=== PATIENT | male | born 1970 | race African-American/Black ===

== ENCOUNTER 2017-01-09 19:56 | Emergency (ER) | payer SELFPAY ==
[2017-01-09] MEDS ORDERED: Ketorolac 30 MG/ML SDV IVPUSH ONE (20:46)
[2017-01-09] MEDS ORDERED: HYDROmorphone 0.5 MG/0.5 ML Syringe IVPUSH ONE (20:46)
[2017-01-09] MEDS ORDERED: Iopamidol 612 MG/ML 150 ML Bottle IVPUSH ONE (21:01)
[2017-01-09] MEDS ORDERED: Diatrizoate Meglumine/Diatrizoate Sodium 37% 120 ML Bottle ONE (21:01)
[2017-01-09] MEDS: Sodium Chloride 0.9% 10 ML Syringe FLUSH PRN ×2 (21:16→21:48)
--- NOTE | 2017-01-09 21:18 | EDM.PDOC ---
<Britni Donis - Last Filed: 01/09/17 23:35> ED HPI GENERAL MEDICAL PROBLEM - General Chief Complaint: Skin Complaint Stated Complaint: Rectal lump Time Seen by Provider: 01/09/17 20:45 Source of Information: Reports: Patient, RN Notes Reviewed History Limitations: Reports: No Limitations - History of Present Illness INITIAL COMMENTS - FREE TEXT/NARRATIVE: 46 year old male presents to the ED with 2-3 day history of rectal discomfort and lump. He feels the area has grown in size since onset. The area is to the outside of his rectum. It is very painful and tender to touch. He has no history of hemorrhoids that he's aware of. No previous abscesses to the rectal area. He reports a history of MRSA on his leg about 10 years ago. No additional history of abscesses in the past. He denies fever or chills. Rectal Pain Score (Numeric/FACES): 9 - Related Data Allergies Allergy/AdvReac Type Severity Reaction Status Date / Time No Known Allergies Allergy Verified 03/09/16 16:52 Home Meds: Home Meds Amoxicillin/Potassium Clav [Augmentin 875-125 Tablet] 1 tab PO Q12H #20 tablet 01/10/17 [Rx] Hydrocodone/Acetaminophen [Timberon 5-325 Tablet] 1 - 2 tab PO Q6H PRN #12 tablet 01/10/17 [Rx] Past Medical History - Past Health History Medical/Surgical History: Denies Medical/Surgical History - Infectious Disease History Infectious Disease History: Reports: MRSA - Past Surgical History Neurological Surgical History: Reports: C-Spine Musculoskeletal Surgical History: Reports: Other (See Below) Social & Family History - Tobacco Use Smoking Status *Q: Current Every Day Smoker Years of Tobacco use: 13 Packs/Tins Daily: 0.7 - Caffeine Use Caffeine Use: Reports: Energy Drinks, Tea - Recreational Drug Use Recreational Drug Use: No - Living Situation & Occupation Living situation: Reports: , with Family Occupation: Employed ED ROS GENERAL - Review of Systems Review Of Systems: See Below Constitutional: Reports: No Symptoms. Denies: Fever, Chills : Reports: Other (rectal pain) Skin: Reports: Erythema, Lumps ED EXAM, SKIN/RASH Exam: See Below Exam Limited By: No Limitations General Appearance: Alert, WD/WN, No Apparent Distress Respiratory/Chest: No Respiratory Distress Cardiovascular: Regular Rate, Rhythm Rectal (Males) Exam: Other (there is an approximate quarter sized lump to the right of the rectum. The area is bright red and tender to touch. No bleeding or drainage. Difficult to determine if this is a perirectal abscess or rectal fissure. ) Skin: Warm, Dry, Normal Color Course - Vital Signs Last Recorded V/S: Last Vital Signs Temp 36.7 C 01/09/17 20:17 Pulse 84 01/09/17 20:17 Resp 20 01/09/17 20:17 BP 135/81 01/09/17 20:17 Pulse Ox 94 L 01/09/17 20:17 - Orders/Labs/Meds Orders: Active Orders 24 hr Category Date Time Status Pelvis w Cont [CT] Stat Exams 01/09/17 20:45 Taken Sodium Chloride 0.9% [Saline Flush] Med 01/09/17 20:45 Active 10 ml FLUSH ASDIRECTED PRN Peripheral IV Insertion Adult [OM.PC] Stat Oth 01/09/17 20:45 Ordered Medication Orders Sodium Chloride (Saline Flush) 10 ml FLUSH ASDIRECTED PRN PRN Reason: Keep Vein Open Last Admin: 01/09/17 21:48 Dose: 10 ml Admin: 01/09/17 21:16 Dose: 10 ml Labs: Laboratory Tests 01/09/17 01/09/17 Range/Units 21:15 21:15 WBC 8.44 (4.23-9.07) K/mm3 RBC 4.39 L (4.63-6.08) M/mm3 Hgb 14.3 (13.7-17.5) gm/L Hct 42.7 (40.1-51.0) % MCV 97.3 H (79.0-92.2) fl MCH 32.6 H (25.7-32.2) pg MCHC 33.5 (32.2-35.5) g/dl RDW Std Deviation 43.9 (35.1-43.9) fL Plt Count 217 (163-337) K/mm3 MPV 9.4 (9.4-12.3) fl Neut % (Auto) 53.2 (34.0-67.9) % Lymph % (Auto) 32.2 (21.8-53.1) % Weld % (Auto) 10.9 (5.3-12.2) % Eos % (Auto) 3.0 (0.8-7.0) Baso % (Auto) 0.6 (0.1-1.2) % Neut # (Auto) 4.49 (1.78-5.38) K/mm3 Lymph # (Auto) 2.72 (1.32-3.57) K/mm3 Weld # (Auto) 0.92 H (0.30-0.82) K/mm3 Eos # (Auto) 0.25 (0.04-0.54) K/mm3 Baso # (Auto) 0.05 (0.01-0.08) K/mm3 Sodium 140 (136-145) mEq/L Potassium 4.1 (3.5-5.1) mEq/L Chloride 104 (98-107) mEq/L Carbon Dioxide 28 (21-32) mEq/L Anion Gap 12.1 (5-15) BUN 10 (7-18) mg/dL Creatinine 1.2 (0.7-1.3) mg/dL Est Cr Clr Drug Dosing 93.43 mL/min Estimated GFR (MDRD) > 60 (>60) mL/min BUN/Creatinine Ratio 8.3 L (14-18) Glucose 120 H (74-106) mg/dL Calcium 8.5 (8.5-10.1) mg/dL Total Bilirubin 0.3 (0.2-1.0) mg/dL AST 22 (15-37) U/L ALT 31 (16-63) U/L Alkaline Phosphatase 63 (46-116) U/L C-Reactive Protein 4.0 H* (<1.0) mg/dL Total Protein 7.4 (6.4-8.2) g/dl Albumin 3.7 (3.4-5.0) g/dl Globulin 3.7 gm/dL Albumin/Globulin Ratio 1.0 (1-2) Meds: Medications Generic Name Dose Route Start Last Admin Trade Name Freq PRN Reason Stop Dose Admin Sodium Chloride 10 ml 01/09/17 20:45 01/09/17 21:48 Saline Flush FLUSH 10 ml ASDIRECTED PRN Administration Keep Vein Open Discontinued Medications Generic Name Dose Route Start Last Admin Trade Name Freq PRN Reason Stop Dose Admin Diatrizoate Meglum/Diatrizoate Sod 60 ml 01/09/17 21:01 01/09/17 21:48 Gastrografin 37% .XX 01/09/17 21:02 60 ml ONETIME ONE Administration Hydromorphone HCl 0.5 mg 01/09/17 20:46 01/09/17 21:16 Dilaudid IVPUSH 01/09/17 20:47 0.5 mg ONETIME ONE Administration Iopamidol 125 ml 01/09/17 21:01 01/09/17 21:48 Isovue-300 (61%) IVPUSH 01/09/17 21:02 125 ml ONETIME ONE Administration Ketorolac Tromethamine 30 mg 01/09/17 20:46 01/09/17 21:16 Toradol IVPUSH 01/09/17 20:47 30 mg ONETIME ONE Administration - Re-Assessments/Exams Free Text/Narrative Re-Assessment/Exam: CBC and CMP unremarkable. CRP is mildly elevated at 4. 2215 [facility] called to report that the CT imaging study was inadequate as it did not visualize the entire perineum and perianal regions for definitive evaluation. They recommend that we repeat a limited study. They do not recommend repeat IV contrast. lift team technician was notified. Will obtain additional images. 01/09/17 23:35 This is the end of my shift. Awaiting radiologist report of additional CT images of the perineum. Dr. Alejandre will be taking over care of the patient at this time. Departure - Departure Disposition: Home, Self-Care 01 Clinical Impression: Perianal abscess - Discharge Information Prescriptions: Hydrocodone/Acetaminophen [Timberon 5-325 Tablet] 1 - 2 tab PO Q6H PRN #12 tablet PRN Reason: Pain (Severe 7-10) Referrals: PCP,None [Primary Care Provider] - Mary Kunz MD [Physician] - Forms: ED Department Discharge Additional Instructions: You were seen in the emergency room for right perianal pain. Workup in the ER included blood work and a CT scan of your pelvis. Your workup demonstrates that you have a right perianal abscess. You have been started on the antibiotic Augmentin. Take one tablet every 12 hours, as prescribed. Finish the entire prescription unless told otherwise by a doctor. You have been prescribed the pain medicine Timberon. Take 1-2 tablets up to every 6 hours, as needed for pain. If you take Timberon, do not drive or operate heavy machinery for 12 hours. Timberon may cause constipation, so consider taking a stool softener. Call the office of the surgeon Dr. Mary Kunz this morning, to make an appointment to be seen by her this afternoon. Other than your medications, DO NOT EAT OR DRINK ANYTHING after 6:00 AM. If any other problems, please do not hesitate to return to the ER. <Eddi Alejandre - Last Filed: 01/10/17 00:33> Course - Re-Assessments/Exams Free Text/Narrative Re-Assessment/Exam: 01/10/17 00:07 CT of the pelvis with IV and rectal contrast is read by [facility] as "There is a small area of induration with surrounding stranding in the subcutaneous right perianal region measuring 1.7 x 1.5 x 2.0 cm. Centrally this has an attenuation of approximately 15 Hounsfield units which is within range of complex fluid and finding is suspicious for small abscess. No other significant abnormality." 01/10/17 00:[address] Mary Kunz at 00:19. She is recommending that we start the patient on Augmentin. I will prescribe some Timberon. The patient is to call her office this morning to make an appointment to be seen by her this afternoon, at which time she will make arrangements for drainage. Departure - Departure Time of Disposition: 00:27 Condition: Fair
[2017-01-10] MEDS ORDERED: Amoxicillin/Clavulanate K 875-125 MG Tab PO ONE (00:23)
[2017-01-10 00:37] VITALS: BP 144/71
--- NOTE | 2017-01-10 10:20 | CT ---
CT pelvis Technique: Multiple axial sections through the pelvis were obtained. Imaging was not continued through the perineum or rectum. Rectal and IV contrast was utilized. Findings: No perirectal abscess or fistula is appreciated on this exam. No intrapelvic abnormality is appreciated. Degenerative change is noted within the apophyseal joints of L4-L5 and L5-S1. Appendix is seen which appears normal. No inflammatory change or free fluid is seen within the abdomen or pelvis. Impression: 1. Complete rectum and lower perineum spaces were not included. 2. Visualized rectum and perirectal spaces show no discrete fistula or abscess. If clinically needed, MRI could be considered as it is much more sensitive for abscess/fistula evaluation. 3. Mild degenerative change within the apophyseal joints at L4-L5 and L5-S1. Diagnostic code #2 I agree with preliminary report issued by [facility] ([facility] preliminary report dictated on 01/09/17, 11:18 PM Central Time) AUDREY
== END 2017-01-10 00:45 | disposition home or self-care (01) ==
LOC: JD.ED 19:56
DX: K61.0 Anal abscess (principal); F17.210 Nicotine dependence, cigarettes, uncomplicated
CPT/HCPCS: 36415; 72193; 80053; 85025; 86140; 96374; 96375; 99284; A9270; J1170; J1885; J7050; Q9963; Q9967; 99283

== ENCOUNTER 2017-04-20 21:09 | Emergency (ER) | payer OTHER ==
[2017-04-20 21:21] VITALS: BP 123/87
[2017-04-20] MEDS ORDERED: Acetaminophen/oxyCODONE 325-5 MG Tab PO ONE (22:40)
--- NOTE | 2017-04-20 22:50 | EDM.PDOC ---
ED HPI GENERAL MEDICAL PROBLEM - General Chief Complaint: Upper Extremity Injury/Pain Stated Complaint: poss burn to hand Time Seen by Provider: 04/20/17 22:32 Source of Information: Reports: Patient History Limitations: Reports: No Limitations - History of Present Illness INITIAL COMMENTS - FREE TEXT/NARRATIVE: 46 year old male presents for evaluation and treatment of an injury to the left thumb. Injury occurred today while at work. 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 Apparently he fell but he is unable to tell me exactly how he fell. He is reporting pain, decreased ROM and swelling to the left thumb. No numbness or tinging to the left thumb. No treatments prior to arrival in the ER. Patient is exhausted from work and has difficulty staying awake for my history an exam. Onset: Today Location: Reports: Lower Extremity, Left (first finger) Left 1-Thumb Pain Score (Numeric/FACES): 9 - Related Data Allergies Allergy/AdvReac Type Severity Reaction Status Date / Time hydrocodone Allergy Mouth Sores Verified 04/20/17 21:21 Sulfa (Sulfonamide Allergy Swelling Verified 04/20/17 21:21 Antibiotics) Home Meds: Home Meds Acetaminophen/oxyCODONE [Percocet 325-5 MG] 1 tab PO Q6H #10 tablet 04/20/17 [Rx ] Past Medical History - Past Health History Medical/Surgical History: Denies Medical/Surgical History - Infectious Disease History Infectious Disease History: Reports: MRSA - Past Surgical History Neurological Surgical History: Reports: C-Spine Musculoskeletal Surgical History: Reports: Arthroscopic Knee, ORIF Social & Family History - Tobacco Use Smoking Status *Q: Current Every Day Smoker Years of Tobacco use: 20 Packs/Tins Daily: 1 - Caffeine Use Caffeine Use: Reports: Energy Drinks, Tea - Recreational Drug Use Recreational Drug Use: No - Living Situation & Occupation Living situation: Reports: , with Family Occupation: Employed Review of Systems - Review of Systems Review Of Systems: See Below Musculoskeletal: Reports: Hand Pain (left thumb), Joint Swelling (left thumb) Skin: Denies: Wound Neurological: Denies: Numbness, Tingling ED EXAM, GENERAL - Physical Exam Exam: See Below Exam Limited By: No Limitations General Appearance: WD/WN, No Apparent Distress, Lethargic Cardiovascular: Normal Peripheral Pulses, Regular Rate, Rhythm Peripheral Pulses: 2+: Radial (L) Extremities: Limited Range of Motion (unable to make a fist, flex or extend th tleft thumb), Other (swellign to the left thumb, tenderness to palpation along the left thumb ulnar aspect) Neurological: Normal Gait. No: Confused Skin Exam: Warm, Dry, Normal Color. No: Erythema ED TRAUMA EXTREMITY PROCEDURES - Splinting Left Upper Extremity Splint Site: left thumb and hand Pre-Procedure NV Status: Normal Post-Procedure NV Status: Normal Splint Material: Other (orthoglass) Splint Design: Thumb Spica Applied & Form Fitted By: Provider, Nurse Provider Post-Splint Application NV Check: NV Status Normal, Good Position Complications: No Course - Vital Signs Last Recorded V/S: Last Vital Signs Temp 36.2 C 04/20/17 21: Pulse 78 04/20/17 21:17 Resp 16 04/20/17 21:17 BP 123/87 04/20/17 21:17 Pulse Ox 92 L 04/20/17 21:17 - Orders/Labs/Meds Meds: Medications Discontinued Medications Generic Name Dose Route Start Last Admin Trade Name Edmund PRN Reason Stop Dose Admin Oxycodone/Acetaminophen 1 tab 04/20/17 22:40 04/20/17 22:48 Percocet 325-5 Mg PO 04/20/17 22:41 1 tab ONETIME ONE Administration - Radiology Interpretation Free Text/Narrative:: xray of the left thumb reviewed by myself and Dr. Alejandre shows no acute fractures or dislocations. - Re-Assessments/Exams Free Text/Narrative Re-Assessment/Exam: 04/20/17 23:07 I reviewed the xray results with the patient. Unsure if he has something like a gamekeepers thumb. He is a poor historian and unable to preform many ROM exercieses. I will put him in a thumb spika splint and discharge him home. Departure - Departure Time of Disposition: 23:08 Disposition: Home, Self-Care 01 Condition: Fair Clinical Impression: Gamekeeper's thumb of left hand - Discharge Information Prescriptions: Acetaminophen/oxyCODONE [Percocet 325-5 MG] 1 tab PO Q6H #10 tablet Referrals: Fadia Arguello PA-C [Primary Care Provider] - Riki Sawant MD [Physician] - Forms: ED Department Discharge Additional Instructions: Follow-up with orthopedics within [address] Sawant. Call [phone] to schedule with him. Ice the thumb 4-5 times a day for 20-30 minutes. you were given medication in the ER that can affect your ability to drive and operate machinery. Do not drive or operate machinery within 12 hours of taking percocet. OTC tylenol or motrin as needed for pain relief. For pain not relieved by tylenol or motrin, may take percocet 1-2 tabs PO every 4-6 hours as need for pain. Percocet can be habit forming, I recommend you take as few of these to control your pain. Do not take more than 4grams of tylenol from all sources in one dauy. Do not drive or operate machinery within 12 hours of taking percocoet. splint on at all times. Keep covered when exposed to water. Please return to the ER should your symptoms change or worsen.
--- NOTE | 2017-04-21 07:37 | CR ---
Left thumb: Three views of the left thumb were obtained. Comparison: No previous finger or hand exam. Joint spaces are preserved. No fracture, dislocation or other bony abnormality is appreciated. Impression: 1. No abnormality is identified on left thumb study. Diagnostic code #1
== END 2017-04-20 23:34 | disposition home or self-care (01) ==
LOC: JD.ED 21:09
DX: S63.418A Traumatic rupture of collateral ligament of other finger at metacarpophalangeal and interphalangeal joint, initial encounter (principal); F17.210 Nicotine dependence, cigarettes, uncomplicated; Z88.2 Allergy status to sulfonamides; Z88.5 Allergy status to narcotic agent; W19.XXXA Unspecified fall, initial encounter; Y99.0 Civilian activity done for income or pay
CPT/HCPCS: 29125; 73140; 99283; A9270

== ENCOUNTER 2017-06-14 15:19 | Emergency (ER) | payer OTHER ==
[2017-06-14 15:38] VITALS: BP 135/97
--- NOTE | 2017-06-14 16:41 | EDM.PDOC ---
ED HPI GENERAL MEDICAL PROBLEM - General Chief Complaint: Neck Problem Stated Complaint: PATIENT STATES SOMETHING IN HIS NECK POPPED Time Seen by Provider: 06/14/17 16:40 Source of Information: Reports: Patient History Limitations: Reports: No Limitations - History of Present Illness INITIAL COMMENTS - FREE TEXT/NARRATIVE: 46-year-old male of -Mal[place]ian ancestry presents to the ED stating that while walking in the mall this afternoon he developed a" popping sensation "in his neck and then acute pain down his left upper extremity. Patient has usually chronic radiculopathy in his right upper extremity. Therefore the left-sided radiculopathy is new. Patient already has known disc herniations in his neck and is awaiting surgical consultation and management with Dr. Rivera neurosurgeon at [facility] in [facility]. Had recent CT and MRI of his cervical spine. He has chronic problems with his neck. He had previous spinal fusion performed in the lower vertebra be believe C6-C7 C5-C6 level -9 years ago. Since that time he is in severe pain primarily in his left upper extremity left side of his neck and is afraid to move. He states he had to shuffle walk out of the mall to get into the vehicle. Onset: Today Onset Date: 06/14/17 Onset Time: 15:00 Duration: Minutes: Location: Reports: Neck Quality: Reports: Ache, Burning, Sharp, Stabbing, Other Severity: Severe (The radicular pain into his left upper extremity) Improves with: Reports: None Worsens with: Reports: Movement Context: Reports: Other (Was just walking in the mall today when he developed a popping sensation in his neck and then left-sided radiculopathy upper extremity. ). Denies: Activity, Exercise, Lifting, Sick Contact, Trauma Associated Symptoms: Reports: Loss of Appetite, Malaise. 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: Reports: Other (see below) (None.) Neck Pain Score (Numeric/FACES): 10 - Related Data Allergies Allergy/AdvReac Type Severity Reaction Status Date / Time hydrocodone Allergy Mouth Sores Verified 06/14/17 15:32 Sulfa (Sulfonamide Allergy Swelling Verified 06/14/17 15:32 Antibiotics) Home Meds: Home Meds Acetaminophen/oxyCODONE [Percocet 325-5 MG] 1 tab PO Q6H #10 tablet 04/20/17 [Rx ] Past Medical History - Past Health History Medical/Surgical History: Denies Medical/Surgical History - Infectious Disease History Infectious Disease History: Reports: MRSA - Past Surgical History Neurological Surgical History: Reports: C-Spine Other Neurological Surgeries/Procedures: fusion Musculoskeletal Surgical History: Reports: Arthroscopic Knee, ORIF Social & Family History - Tobacco Use Smoking Status *Q: Current Every Day Smoker Years of Tobacco use: 15 Packs/Tins Daily: 0.5 - Caffeine Use Caffeine Use: Reports: Tea - Recreational Drug Use Recreational Drug Use: No - Living Situation & Occupation Living situation: Reports: , with Family Occupation: Employed ED ROS GENERAL - Review of Systems Review Of Systems: See Below Constitutional: Reports: Fatigue (From not sleeping very well last several weeks.). Denies: Fever, Chills HEENT: Reports: No Symptoms Respiratory: Reports: No Symptoms Cardiovascular: Reports: No Symptoms Endocrine: Reports: No Symptoms GI/Abdominal: Reports: Constipation : Reports: No Symptoms Musculoskeletal: Reports: Neck Pain (Chronic cervical neck pain the last month. Previous cervical fusion C5-C6 C6-C7 9 years ago.) Skin: Reports: No Symptoms Neurological: Reports: No Symptoms, Other (Radiculopathy both upper extremities. ) Psychiatric: Reports: No Symptoms ED EXAM, UPPER BACK/NECK PAIN - Physical Exam Exam: See Below Exam Limited By: No Limitations General Appearance: Alert, Moderate Distress Eye Exam: Bilateral Eye: Normal Inspection Throat/Mouth Exam: Normal Inspection, Normal Lips, Normal Teeth, Normal Oropharynx Head Exam: Atraumatic, Normocephalic Neck Exam: Limited Range of Motion, Other (Patient is very apprehensive about any movement of his neck at this time. He tends to look straight ahead and not want to laterally rotate at all as it aggravates the pain in the left side of his neck. On palpation there is very minimal muscle spasm palpable left or right side.) Cardiovascular/Respiratory: Regular Rate, Rhythm, No M/R/G, Normal Peripheral Pulses, No JVD GI/Abdominal: Normal Bowel Sounds, Soft, Non-Tender, No Organomegaly Extremities: Other (He prefers to hold his left arm that 90 flexion at the elbow across his abdomen. 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 As Tested, Alert, Normal Mood/Affect (Anxious and apprehensive.), Oriented x 3 Psychiatric: Normal Affect, Normal Mood, Anxious Skin Exam: Normal Color, Warm/Dry Course - Vital Signs Last Recorded V/S: Last Vital Signs Temp 36.9 C 06/14/17 15:33 Pulse 89 06/14/17 15:33 Resp 12 06/14/17 15:33 BP 135/97 H 06/14/17 15:33 Pulse Ox 99 06/14/17 15:33 - Orders/Labs/Meds Orders: Active Orders 24 hr Category Date Time Status Sodium Chloride 0.9% [Normal Saline] 1,000 ml Med 06/14/17 17:00 Active IV ASDIRECTED Medication Orders Sodium Chloride (Normal Saline) 1,000 mls @ 125 mls/hr IV ASDIRECTED SHY Last Admin: 06/14/17 17:03 Dose: 125 mls/hr Meds: Medications Generic Name Dose Route Start Last Admin Trade Name Freq PRN Reason Stop Dose Admin Sodium Chloride 1,000 mls @ 125 mls/hr 06/14/17 17:00 06/14/17 17:03 Normal Saline IV 125 mls/hr ASDIRECTED SHY Administration Discontinued Medications Generic Name Dose Route Start Last Admin Trade Name Freq PRN Reason Stop Dose Admin Hydromorphone HCl 1 mg 06/14/17 16:49 06/14/17 17:03 Dilaudid IVPUSH 06/14/17 16:50 1 mg ONETIME ONE Administration Hydromorphone HCl 1 mg 06/14/17 18:11 06/14/17 18:19 Dilaudid IVPUSH 06/14/17 18:12 1 mg ONETIME ONE Administration Metoclopramide HCl 10 mg 06/14/17 16:49 06/14/17 17:03 Reglan IVPUSH 06/14/17 16:50 10 mg ONETIME ONE Administration - Radiology Interpretation Free Text/Narrative:: 46-year-old male presents to the ED after developing a sudden popping sensation in his neck while walking in the mall today. This created severe pain and radiculopathy into his left upper extremity which he has not expressed in the past. Patient has chronic cervical neck pain and has had recent MRI and CTs carried out which indicate a significant degenerative disc disease and bulge. Is scheduled to see Dr. Rivera neurosurgeon at [facility] for definitive surgical management but he has not received a surgical date at this time prior to today he been experiencing radiculopathy into his right upper extremity. Patient has had previous cervical spine fusion he believes at C5-C6 C6-C7 level 9 years ago. On up until about a month ago when pain suddenly started in his neck due to disc herniation. No recent trauma to the neck has occurred. Plan the present he is very apprehensive about about any movement of his neck. I will start an IV on him and given Dilaudid 1 mg IV with Reglan [address] of the cervical spine will be ordered once he can lie down flat. - Re-Assessments/Exams Free Text/Narrative Re-Assessment/Exam: 06/14/17: 18:00 CT of the cervical spine report is now available. It shows mild posterior disc space narrowing at C2-C3 level was no central canal stenosis or neural foraminal stenosis noted. At C3-C4 there is mild disc space narrowing but there is mild bilateral neural foraminal stenosis is seen as well no central canal stenosis is seen there is mild posterior diffuse disc bulge which appears to cause some central canal stenosis. At C4-C5 there is mild disc space narrowing note neural foramina are patent and no central canal stenosis is seen at C6-C7 there is intervertebral disc fixation device present artifact is noted from the hardware. The left neural foramen is patent the right neural foramina is mildly narrowed. Central canal is preserved C6-C7 shows mild disc space narrowing with no central canal stenosis or neural foraminal stenosis seen C7- T1 disc space is preserved no central canal stenosis or neural foraminal stenosis is seen. No fractures are identified. Therefore concern exists about possible central bulge of disc at C3-C4 level causing current symptoms. 06/14/17 18:11 I discussed the findings with the patient . He is likely going to require neurosurgical management. At present he is disabled. Not working and therefore financial barriers exist to getting fixed up. He currently is still having significant pain 7 out of 10 on I will repeat Dilaudid 1 mg IV. I'm going to look at his previous MRI to determine if the disc in question is similar to what we found on CT today. 06/14/17 18:15 Unfortunately appears his MRI was not done at this hospital as I cannot identify it in our archives. It probably was done at [facility] or [facility]. Patient states he is having some much pain at this time that he is going to travel to [facility]. We can try and fit him with a collar although I think this may be difficult as he has a "bull" neck. 06/14/17 19:15 Patient was fitted successfully with a Hopi type cervical collar and he felt this felt better. He plans on traveling to [facility] as mentioned above. He's not sure which hospital he is going to therefore I did not make a referral. Departure - Departure Time of Disposition: 18:25 Disposition: Home, Self-Care 01 Condition: Fair Clinical Impression: Degeneration of intervertebral disc of cervical spine without disc herniation, Radiculopathy affecting upper extremity - Discharge Information Instructions: Cervical Radiculopathy, [id number] Referrals: Fadia Arguello PA-C [Primary Care Provider] - Forms: ED Department Discharge Additional Instructions: Evaluation the emergency room today in regards to sudden onset of worsening pain in her neck with left-sided or upper extremity paresthesias which means numbness tingling and pain which we call radiculopathy. Prior to today only having pain in your right upper extremity. Popping sensation and worsening of pain suggests a disc as ruptured or herniated. Teeth exam of the neck was done in the ED and it suggests that the disc at the C3-C4 level is pushed backwards and touching the spinal cord. Unfortunately to further define for sure if the cord is being compressed significantly an MRI is required which is not available at this time in [place]. As we discussed to your plans are to travel to [facility] for definitive imaging studies and determination whether emergent neurosurgical decompression is required. You have received 2 doses of Dilaudid 1 mg strength IV while in the eye the ED for pain relief. You cannot operate a motor vehicle for the next 8 hours due to this medication. - My Orders Last 24 Hours: My Active Orders 06/14/17 17:00 Sodium Chloride 0.9% [Normal Saline] 1,000 ml IV ASDIRECTED - Assessment/Plan Last 24 Hours: My Active Orders 06/14/17 17:00 Sodium Chloride 0.9% [Normal Saline] 1,000 ml IV ASDIRECTED
[2017-06-14] MEDS ORDERED: HYDROmorphone 1 MG/ML Syringe IVPUSH ONE ×2 (16:49→18:11)
[2017-06-14] MEDS ORDERED: Metoclopramide 10 MG/2 ML SDV IVPUSH ONE (16:49)
[2017-06-14] MEDS ORDERED: Sodium Chloride 0.9% 1,000 ML IV SCH (17:00)
--- NOTE | 2017-06-14 18:12 | CT ---
CT cervical spine Technique: Multiple axial sections were obtained from above C1 inferiorly to the bottom of T2. Reconstructed sagittal and coronal images were reviewed. Comparison: Previous CT cervical spine exam of 06/05/13. Findings: Anterior plate and screws are noted at C5-C6. These are stable from prior exam. Mastoid sinuses and middle ear cavities are clear. Posterior skull base is intact. Slight degenerative change is noted between the dens and anterior arch of C1. C2-C3: Mild posterior disc space narrowing is seen. No central canal stenosis or neural foraminal stenosis is seen. C3-C4: Mild disc space narrowing is seen. Mild bilateral neural foraminal stenosis is seen. No central canal stenosis is seen. Mild posterior diffuse bulge is seen which appears to cause some central canal stenosis. This can be better defined by MRI. C4-C5: Mild disc space narrowing is seen. Neural foramina are patent. No central canal stenosis is seen. C6-C7: Intervertebral disc fixation device is seen. Artifact is noted from the hardware. Left neural foramen is patent. Right neural foramina is minimally narrowed. Central canal is preserved. C6-C7: Mild disc space narrowing is seen. No central canal stenosis or neural foraminal stenosis is seen. C7-T1: Disc space is preserved. No central canal stenosis or neural foraminal stenosis is seen. No fracture is seen. No abnormal subluxation is seen. Mild degenerative apophyseal change is scattered within the cervical spine. Impression: 1. Mild degenerative change as noted above with areas of neural foraminal stenosis. Possible diffuse disc bulge at C3-C4 possibly causing some central canal stenosis. This can be better defined by MRI if clinically needed. 2. Previous surgery which is stable from prior exam. 3. Nothing acute is appreciated. Diagnostic code #3
== END 2017-06-14 19:00 | disposition home or self-care (01) ==
LOC: JD.ED 15:19
DX: M50.30 Other cervical disc degeneration, unspecified cervical region (principal); F17.210 Nicotine dependence, cigarettes, uncomplicated; Z88.2 Allergy status to sulfonamides; Z88.5 Allergy status to narcotic agent
CPT/HCPCS: 72125; 96361; 96374; 96375; 96376; 99284; J1170; J2765; J7040

== ENCOUNTER 2017-06-21 12:39 | Emergency (ER) | payer OTHER ==
[2017-06-21] MEDS ORDERED: Sodium Chloride 0.9% 10 ML Syringe FLUSH PRN (13:07)
[2017-06-21 13:09] VITALS: BP 141/90
[2017-06-21] MEDS ORDERED: Sodium Chloride 0.9% 1,000 ML IV SCH (13:15)
[2017-06-21] MEDS ORDERED: Iopamidol 612 MG/ML 100 ML Bottle IVPUSH ONE (13:19)
[2017-06-21] MEDS ORDERED: Sodium Chloride 0.9% 10 ML Syringe FLUSH ONE (13:19)
[2017-06-21] MEDS ORDERED: Ondansetron 4 MG/2 ML SDV IVPUSH ONE (13:20)
[2017-06-21] MEDS ORDERED: HYDROmorphone 0.5 MG/0.5 ML Syringe IVPUSH ONE (13:21)
--- NOTE | 2017-06-21 14:16 | CT ---
CT neck Technique: Multiple axial sections through the neck were obtained. Intravenous contrast was utilized. Findings: Large soft tissue mass identified within the lower left neck having a slightly lobulated appearance with maximum length measurement at 6.2 cm. Soft tissue fullness is noted to the left paralaryngeal soft tissues and prevertebral soft tissues which connects to the superficial abnormality. There is also some infiltration being seen of this abnormality anterior to the left perivascular space. Parotid salivary glands and submandibular salivary glands appear within normal limits. I do not see any discrete adenopathy. Bone window settings were reviewed which shows previous cervical spine surgery. Impression: 1. Large soft tissue mass as described above superficially within the left lower neck with extension into the prevertebral and paralaryngeal and pre-vascular space on the left side. This correlates to hematoma by clinical history. Diagnostic code #5
[2017-06-21] MEDS ORDERED: Ondansetron 4 MG/2 ML SDV ONE (14:20)
[2017-06-21] MEDS ORDERED: HYDROmorphone 0.5 MG/0.5 ML Syringe ONE (14:20)
[2017-06-21] MEDS ORDERED: Sodium Chloride 0.9% 1,000 ML ONE (14:20)
--- NOTE | 2017-06-21 16:38 | EDM.PDOC ---
ED HPI GENERAL MEDICAL PROBLEM - General Chief Complaint: ENT Problem Stated Complaint: POST SURGICAL NECK SWELLING Time Seen by Provider: 06/21/17 13:05 Source of Information: Reports: Patient History Limitations: Reports: No Limitations - History of Present Illness INITIAL COMMENTS - FREE TEXT/NARRATIVE: Patient is a 46-year-old male who presents ED complaining of a extending hematoma to the left anterior aspect of the neck after undergoing cervical fusion of 5 and 6 this past . Patient states right after surgery had swelling to his neck that has dissipated on the right side but is only producing getting worse on the left. States as a recent the swelling is causing difficulty with swallowing. Denies any difficulty with breathing. Hematomas nonpulsating. There is no bleeding from surgical incision site. He's been afebrile with only mild nausea present. No vomiting. Has taken Percocet tabs for pain with only minimal relief. Neck Pain Score (Numeric/FACES): 9 - Related Data Allergies Allergy/AdvReac Type Severity Reaction Status Date / Time hydrocodone Allergy Mouth Sores Verified 06/14/17 15:32 Sulfa (Sulfonamide Allergy Swelling Verified 06/14/17 15:32 Antibiotics) Home Meds: Home Meds Acetaminophen/oxyCODONE [Percocet 325-5 MG] 1 tab PO Q6H #10 tablet 04/20/17 [Rx ] Past Medical History - Past Health History Medical/Surgical History: Denies Medical/Surgical History Musculoskeletal History: Reports: Other (See Below) Other Musculoskeletal History: Chronic neck pain - Infectious Disease History Infectious Disease History: Reports: MRSA - Past Surgical History Neurological Surgical History: Reports: C-Spine Other Neurological Surgeries/Procedures: fusion Musculoskeletal Surgical History: Reports: Arthroscopic Knee, Other (See Below) Other Musculoskeletal Surgeries/Procedures:: "spinal spacing and fusion of neck " Social & Family History - Family History Family Medical History: Noncontributory - Tobacco Use Smoking Status *Q: Current Every Day Smoker Years of Tobacco use: 10 Packs/Tins Daily: 0.5 - Caffeine Use Caffeine Use: Reports: Tea - Recreational Drug Use Recreational Drug Use: No - Living Situation & Occupation Living situation: Reports: , with Family Occupation: Employed ED ROS GENERAL - Review of Systems Review Of Systems: See Below Constitutional: Reports: No Symptoms HEENT: Reports: Other (Difficulty with swallowing) Respiratory: Reports: No Symptoms Cardiovascular: Reports: No Symptoms GI/Abdominal: Reports: Nausea (Occassionally). Denies: Vomiting Musculoskeletal: Reports: Neck Pain (S/p fusion surgery 06/16/2017, hematoma to the left anterior neck. ) ED EXAM, UPPER BACK/NECK PAIN - Physical Exam Exam: See Below Exam Limited By: No Limitations General Appearance: Alert, WD/WN, No Apparent Distress Ears Exam: Hearing Grossly Normal Nose Exam: Normal Inspection Throat/Mouth Exam: Normal Gums, Normal Oropharynx, No Airway Compromise, Other ( Voice is hoarse and soft. ). No: Uvular Deviation Head Exam: Atraumatic, Normocephalic Neck Exam: Stiff Neck, Tenderness (Left anterior neck with palpation of hematoma and surrounding tissue. Large non pulsating hematomato the left anterior neck just left of the trachea. Surgical incision intact. No bleeding, redness, increased warmth, or any additional complaints. 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 DIRECTED Care 06/21/17 13:07 Active Peripheral IV Care [RC] . DIRECTED Care 06/21/17 13:08 Active NPO [Nothing Per Oral Diet] [DIET] Diet 06/21/17 Lunch Active Soft Tissue Neck w Cont [CT] Stat Exams 06/21/17 13:08 Ordered CBC WITH AUTO DIFF [HEME] Stat Lab 06/21/17 13:07 Ordered COMPREHENSIVE METABOLIC PN,CMP [CHEM] Stat Lab 06/21/17 13:08 Ordered INR,PT,PROTHROMBIN TIME [COAG] Stat Lab 06/21/17 13:07 Ordered PTT,PARTIAL THROMBOPLSTIN TIME [COAG] Stat Lab 06/21/17 13:07 Ordered TYPE AND SCREEN [BBK] Stat Lab 06/21/17 13:12 Ordered HYDROmorphone [Dilaudid] Med 06/21/17 13:21 Once 0.5 mg IVPUSH ONETIME ONE Iopamidol [Isovue-300 (61%)] Med 06/21/17 13:19 Once 80 ml IVPUSH ONETIME ONE Ondansetron [Zofran] Med 06/21/17 13:20 Once 4 mg IVPUSH ONETIME ONE Sodium Chloride 0.9% @ 125 MLS/HR (1000ml) Med 06/21/17 13:15 Ordered Sodium Chloride 0.9% [Normal Saline] 1,000 ml IV ASDIRECTED Sodium Chloride 0.9% [Saline Flush] Med 06/21/17 13:07 Ordered 10 ml FLUSH ASDIRECTED PRN Sodium Chloride 0.9% [Saline Flush] Med 06/21/17 13:19 Once 10 ml FLUSH ONETIME ONE Peripheral IV Insertion Adult [OM.PC] Routine Oth 06/21/17 13:07 Ordered - Re-Assessments/Exams Free Text/Narrative Re-Assessment/Exam: IV established with normal saline 125 mL per hour, Zofran 4 mg IVP, and Dilaudid 0.5 mg IVP. Initial labs and studies include CBC, chem 14, PTT/INR, PTT, type and screen, and also CT of the neck with IV contrast. Patient is nothing by mouth at this point. 06/21/17 14:13 CT neck impression: Large soft tissue mass as described above superficially within the left lower neck with extension into the prevertebral and paralaryngeal and prevascular space on the left side. This correlates to hematoma by clinical history. 1414 Spoke with [facility]. Faxed CT neck report to [facility] to have teacher vocational training Neurosurgeon to review. They will call back with plan. Fax did not go through. Clinical Data Associate has been in contact with [facility] and refaxed CT report. Lab orders and results are not crossing over due to [employer] operating issues. This is delaying care planning and disposition. 06/21/17 15:35 [facility] has called back stating they did not receive any faxes. Clinical Data Associate has faxed document four times with no success. Spoke with Radha PERDUE with Neurosurgery. Will have Dr. Conti review CT imaging and call back. 06/21/17 15:52 Radha MATH TUTOR with Neurosurgery called back. Dr. Conti reviewed CT of the neck. Not to concerned at this point. Requested patient return to their clinic tomorrow at 910 Central time and start patient on medro dose pack. This has been called into patients Pharmacy. 06/21/17 16:001 Lab results finally present: White blood cell count 7.90, hemoglobin 15, platelet count 249, coag studies within normal limits. Departure - Departure Time of Disposition: 16:01 Disposition: Home, Self-Care 01 Condition: Good Clinical Impression: S/P cervical discectomy Hematoma of neck Qualifiers: Encounter type: initial encounter Qualified Code(s): S10.93XA - Contusion of unspecified part of neck, initial encounter - Discharge Information Referrals: Fred Conti MD [Consulting Physician] - Forms: ED Department Discharge Additional Instructions: As discussed will have you follow-up with Dr. Conti in his clinic tomorrow at 910 a.m. central time zone for reevaluation. Continue taking all home medications as prescribed. Do not take ASA. Return to the E.D. if you develop any new or worsening symptoms. - My Orders Last 24 Hours: My Active Orders 06/21/17 13:07 Cardiac Monitoring [RC] . DIRECTED CBC WITH AUTO DIFF [HEME] Stat INR,PT,PROTHROMBIN TIME [COAG] Stat PTT,PARTIAL THROMBOPLSTIN TIME [COAG] Stat Sodium Chloride 0.9% [Saline Flush] 10 ml FLUSH ASDIRECTED PRN Peripheral IV Insertion Adult [OM.PC] Routine 06/21/17 13:08 Peripheral IV Care [RC] . DIRECTED Soft Tissue Neck w Cont [CT] Stat COMPREHENSIVE METABOLIC PN,CMP [CHEM] Stat 06/21/17 13:12 TYPE AND SCREEN [BBK] Stat 06/21/17 13:15 Sodium Chloride 0.9% @ 125 MLS/HR (1000ml) Sodium Chloride 0.9% [Normal Saline] 1,000 ml IV ASDIRECTED 06/21/17 13:19 Iopamidol [Isovue-300 (61%)] 80 ml IVPUSH ONETIME ONE Sodium Chloride 0.9% [Saline Flush] 10 ml FLUSH ONETIME ONE 06/21/17 13:20 Ondansetron [Zofran] 4 mg IVPUSH ONETIME ONE 06/21/17 13:21 HYDROmorphone [Dilaudid] 0.5 mg IVPUSH ONETIME ONE 06/21/17 Lunch NPO [Nothing Per Oral Diet] [DIET] - Assessment/Plan Last 24 Hours: My Active Orders 06/21/17 13:07 Cardiac Monitoring [RC] . DIRECTED CBC WITH AUTO DIFF [HEME] Stat INR,PT,PROTHROMBIN TIME [COAG] Stat PTT,PARTIAL THROMBOPLSTIN TIME [COAG] Stat Sodium Chloride 0.9% [Saline Flush] 10 ml FLUSH ASDIRECTED PRN Peripheral IV Insertion Adult [OM.PC] Routine 06/21/17 13:08 Peripheral IV Care [RC] . DIRECTED Soft Tissue Neck w Cont [CT] Stat COMPREHENSIVE METABOLIC PN,CMP [CHEM] Stat 06/21/17 13:12 TYPE AND SCREEN [BBK] Stat 06/21/17 13:15 Sodium Chloride 0.9% @ 125 MLS/HR (1000ml) Sodium Chloride 0.9% [Normal Saline] 1,000 ml IV ASDIRECTED 06/21/17 13:19 Iopamidol [Isovue-300 (61%)] 80 ml IVPUSH ONETIME ONE Sodium Chloride 0.9% [Saline Flush] 10 ml FLUSH ONETIME ONE 06/21/17 13:20 Ondansetron [Zofran] 4 mg IVPUSH ONETIME ONE 06/21/17 13:21 HYDROmorphone [Dilaudid] 0.5 mg IVPUSH ONETIME ONE 06/21/17 Lunch NPO [Nothing Per Oral Diet] [DIET]
== END 2017-06-21 16:20 | disposition home or self-care (01) ==
LOC: JD.ED 12:39
DX: M96.840 Postprocedural hematoma of a musculoskeletal structure following a musculoskeletal system procedure (principal); F17.210 Nicotine dependence, cigarettes, uncomplicated; Z88.5 Allergy status to narcotic agent; Z88.2 Allergy status to sulfonamides; Z98.1 Arthrodesis status
CPT/HCPCS: 36415; 70491; 80053; 85025; 85610; 85730; 86850; 86900; 86901; 96361; 96374; 96375; 99284; J1170; J2405; J7040; Q9967; 99283

== ENCOUNTER 2017-06-24 06:12 | Emergency (ER) | payer SELFPAY ==
[2017-06-24 06:21] VITALS: BP 149/104
--- NOTE | 2017-06-24 06:48 | EDM.PDOC ---
ED HPI GENERAL MEDICAL PROBLEM - General Chief Complaint: Wound Recheck Stated Complaint: WOUND RECHECK Time Seen by Provider: 06/24/17 06:29 Source of Information: Reports: Patient, Old Records History Limitations: Reports: No Limitations - History of Present Illness INITIAL COMMENTS - FREE TEXT/NARRATIVE: The patient underwent a left anterior cervical discectomy and fusion on , 06/26/2017, per the Neurosurgeon Dr. Conti at [facility]. He developed a postoperative hematoma on the left side of his lower neck. He was seen in this ED for evaluation on 06/21/2017, where a CT scan was performed, confirming the hematoma. The images were forwarded to his Neurosurgeon, who reviewed them. The patient followed up with Dr. Conti this past Tuesday, . The patient states that the wound was not manipulated, however, he was started on a Medrol Dosepak. The patient states that he was woken this morning with warm fluid coming out of the wound. The fluid is thick and dark. There is no associated pain. - Related Data Allergies Allergy/AdvReac Type Severity Reaction Status Date / Time hydrocodone Allergy Mouth Sores Verified 06/24/17 06:21 Sulfa (Sulfonamide Allergy Swelling Verified 06/24/17 06:21 Antibiotics) Home Meds: Home Meds Acetaminophen/oxyCODONE [Percocet 325-5 MG] 1 tab PO Q6H #10 tablet 04/20/17 [Rx ] Cyclobenzaprine [Flexeril] 10 mg PO BID 06/24/17 [History] Past Medical History - Past Health History Medical/Surgical History: Denies Medical/Surgical History Musculoskeletal History: Reports: Other (See Below) Other Musculoskeletal History: Chronic neck pain - Infectious Disease History Infectious Disease History: Reports: MRSA - Past Surgical History Neurological Surgical History: Reports: C-Spine Other Neurological Surgeries/Procedures: fusion Musculoskeletal Surgical History: Reports: Arthroscopic Knee, Other (See Below) Other Musculoskeletal Surgeries/Procedures:: "spinal spacing and fusion of neck " Social & Family History - Family History Family Medical History: Noncontributory - Tobacco Use Smoking Status *Q: Current Every Day Smoker Years of Tobacco use: 15 Packs/Tins Daily: 0.5 - Caffeine Use Caffeine Use: Reports: Tea - Recreational Drug Use Recreational Drug Use: No - Living Situation & Occupation Living situation: Reports: , with Family Occupation: Employed ED ROS GENERAL - Review of Systems Review Of Systems: ROS reveals no pertinent complaints other than HPI. ED EXAM, GENERAL - Physical Exam Exam: See Below Exam Limited By: No Limitations General Appearance: Alert, WD/WN, No Apparent Distress Eye Exam: Bilateral Eye: Normal Inspection Ears: Normal External Exam, Hearing Grossly Normal Nose: Normal Inspection, No Blood Throat/Mouth: Normal Inspection, Normal Lips, Normal Voice, No Airway Compromise Head: Atraumatic, Normocephalic Neck: Other (Moderate swelling on the left inferoanterior aspect of the patient' s neck, with a horizontal surgical wound overlying. There is a small emanation of dark, thick fluid, consistent with liquefied hematoma, from a tiny opening at the midline of the surgical wound. Pressing on the hematoma can increase the expression of this fluid. Minimal tenderness associated. No surrounding erythema to suggest infection.) Course - Vital Signs Last Recorded V/S: Last Vital Signs Temp 37.1 C 06/24/17 06:18 Pulse 97 06/24/17 06:18 Resp 16 06/24/17 06:18 BP 149/104 H 06/24/17 06:18 Pulse Ox 95 06/24/17 06:18 - Re-Assessments/Exams Free Text/Narrative Re-Assessment/Exam: 06/24/17 06:42 The patient surgical wound appears to be draining dark, thick liquefied hematoma. I was able to express some, but more is coming. I have asked the nurse to clean the wound with ordinary soap and water, then dressed with a clean dressing. The patient will be discharged home with some additional dressing change supplies. I would like him to contact the office of his Neurosurgeon, Dr. Conti, although I doubt that Dr. Conti will need to see him. Departure - Departure Time of Disposition: 06:44 Disposition: Home, Self-Care 01 Condition: Good Clinical Impression: Hematoma of neck - Discharge Information Instructions: Hematoma, [place] Referrals: Fadia Arguello PA-C [Primary Care Provider] - Fred Conti MD [Consulting Physician] - Forms: ED Department Discharge Additional Instructions: You were seen in the emergency room for bleeding from your surgical neck wound. On inspection, the blood that is coming out of your wound is liquefied hematoma. You should expect this to continue until the hematoma is gone. Keep the wound clean with ordinary soap and water. Replace a fresh dressing as needed, depending on how much drainage there is. We recommend that you notify the office of your Neurosurgeon, Dr. Conti, of this development, however, he will not likely need to see you. If any other problems, please do not hesitate to return to the ER.
== END 2017-06-24 06:55 | disposition home or self-care (01) ==
LOC: JD.ED 06:12
DX: M96.840 Postprocedural hematoma of a musculoskeletal structure following a musculoskeletal system procedure (principal); F17.210 Nicotine dependence, cigarettes, uncomplicated; Z88.5 Allergy status to narcotic agent; Z88.2 Allergy status to sulfonamides; Z98.1 Arthrodesis status
CPT/HCPCS: 99282; 99283